=== PATIENT | male | born 1965 | race Caucasian/White ===

== ENCOUNTER 2025-03-27 16:42 | Observation (INO) | payer OTHER ==
[~2025-03-27] VITALS: Ht 175.3 cm; Wt 99.5 kg
[2025-03-27] MEDS ORDERED: SODIUM CHLORIDE 0.9% 500 ML IV ONE (17:00)
[2025-03-27 17:12] LABS: BASOPHILS 0.5 % (0.2-1.2); EOSINOPHILS 1.6 % (0.8-7.0); LYMPHOCYTES 17.1 % (21.8-53.1); MCH 30.9 PG (25.7-32.2); MCHC 34.9 g/dL (32.3-36.5); MCV 88.5 fL (79.0-92.2); MONOCYTES 6.7 % (5.3-12.2); NEUTROPHILS 73.8 % (34.0-67.9); RBC 5.37 M/uL (4.63-6.08)
[2025-03-27] MEDS ORDERED: MIDAZOLAM HCL 2 MG/2 ML VIAL IV ONE (17:15)
[2025-03-27 17:25] LABS: ALT (SGPT) 12.0 U/L (14-59); AST (SGOT) 16.0 U/L (15-37); GLOMERULAR FILTRATION RATE,EST 97.0 mL/min (>60); PROTEIN, TOTAL 7.9 g/dL (6.4-8.2); UREA NITROGEN 9.0 mg/dL (7-18)
[2025-03-27 17:40] LABS: BLOOD/HGB, URINE NEGATIVE (Negative); KETONE, URINE NEGATIVE (Negative); LEUK ESTERASE, URINE NEGATIVE (negative); NITRITE, URINE NEGATIVE (negative)
[2025-03-27 17:55] LABS: AMPHETAMINES, URINE NEGATIVE (NEGATIVE); BARBITURATES, URINE NEGATIVE (NEGATIVE); BENZODIAZEPINE, URINE NEGATIVE (NEGATIVE); CANNABINOID, URINE NEGATIVE (NEGATIVE); COCAINE, URINE NEGATIVE (NEGATIVE); ECSTASY, URINE NEGATIVE (NEGATIVE); FENTANYL, URINE NEGATIVE (NEGATIVE); METHADONE, URINE NEGATIVE (NEGATIVE); OPIATES, URINE NEGATIVE (NEGATIVE); OXYCODONE, URINE NEGATIVE (NEGATIVE); PHENCYCLIDINE, URINE NEGATIVE (NEGATIVE)
[2025-03-27] MEDS ORDERED: MECLIZINE HCL 25 MG TAB PO ONE (18:45)
[2025-03-27] MEDS ORDERED: ACETAMINOPHEN 325 MG TAB PO PRN (19:30)
[2025-03-27] MEDS ORDERED: PANTOPRAZOLE SODIUM 40 MG TABEC PO SCH (19:31)
[2025-03-27] MEDS ORDERED: AMLODIPINE BESYLATE 5 MG TAB PO SCH (19:32)
--- NOTE | 2025-03-27 21:00 | NUR ---
PATIENT ARRIVED TO UNIT VIA STRETCHER. REPORT RECEIVED FROM LUCIE TORO. ALL QUESTIONS ANSWERED. PATIENT REFUSES GOWN AT THIS TIME. PATIENT UP TO BATHROOM, SBA. GAIT UNSTEADY. PATIENT UNABLE TO VOID AT THIS TIME. PATIENT BACK TO BED. PATIENT ASSESSMENT COMPLETE. PATIENT STATES HE HAS INTERMITTENT DIZZINESS AND DOUBLE VISION. PATIENT PLACED ON CONTINUOUS HEART MONITOR. PATIENT DENIES PAIN OR NAUSEA. PATIENT UNRECEPTIVE TO EDUCATION, AND REFUSING SOME CARES AT THIS TIME. PATIENT DENIES NEEDS. ORIENTED TO ROOM AND CALL LIGHT. PATIENT STATES, "I DO NOT NEED YOUR HELP WITH ANYTHING. I CAN DO IT MYSELF". THIS RN AND LUCIE TOLBERT REMAIN IN ROOM TO COMPLETE ADMISSION.
[2025-03-27 21:11] VITALS: BP 188/101
--- NOTE | 2025-03-27 21:15 | NUR ---
PATIENT PROVIDED WITH SANDWICH BOX AND WATER. PATIENT STATES "I DO NOT DRINK WATER". ORANGE JUICE PROVIDED PER PATIENT REQUEST. PATIENT REFUSING PO PROTONIX, DESPITE EDUCATION PROVIDED. LIGHTS DIMMED, CALL LIGHT IN REACH. PATIENT VERBALIZES UNDERSTANDING TO NOTIFY RN OF NEEDS. BED ALARM ON.
[2025-03-27 21:27] VITALS: BP 190/108
--- NOTE | 2025-03-27 21:30 | NUR ---
PRN HYDRALAZINE ADMINISTERED FOR A BLOOD PRESSURE OF 190/108 MAP 133. THIS RN AND LUCIE TOLBERT REMAIN IN ROOM.
[2025-03-27 21:48] VITALS: BP 153/93
[2025-03-27 22:00] VITALS: BP 165/91
--- NOTE | 2025-03-27 22:05 | NUR ---
DR MACHADO CALLED AND PROVIDED UPDATE ON PATIENT. PARAMETERS RECEIVED FOR PRN HYDRALAZINE FOR A SYSTOLIC >160 AND DIASTOLIC >95. VERIFIED VIA REPEAT BACK METHOD.
[2025-03-27 22:41] VITALS: BP 151/84
--- NOTE | 2025-03-27 23:30 | NUR ---
ROUNDING ON PATIENT.
--- NOTE | 2025-03-27 23:37 | NUR ---
PATIENT SETS BED ALARM OFF, GETTING UP TO USE RESTROOM. THIS RN AND ROBIN RN IN ROOM TO ASSIST. PATIENT AMBULATES TO BATHROOM, VOIDS 400CC, AND BACK TO BED. PATIENT UNSTEADY ON FEET. PATIENT DENIES ANY FURTHER NEEDS AT THIS TIME. CALL LIGHT IN REACH, BED ALARM ON.
[2025-03-28] VITALS (10 sets, daily range): BP systolic 159–228; BP diastolic 87–136
--- NOTE | 2025-03-28 00:05 | NUR ---
PATIENT RESTING IN BED. RR 22. PATIENT UPDATED ON POC. PATIENT DENIES DIZZINESS, AND STATES "I HAVE NEVER BEEN DIZZY". PATIENT DENIES PAIN OR NAUSEA. PATIENT DENIES NEEDS AT THIS TIME. CALL LIGHT IN REACH, BED ALARM ON.
--- NOTE | 2025-03-28 01:30 | NUR ---
PATIENT UP TO BATHROOM. VOIDS 400ML OF URINE. PATIENT BACK TO BED. NO FURTHER NEEDS AT THIS TIME. CALL LIGHT IN REACH, BED ALARM ON.
--- NOTE | 2025-03-28 02:20 | NUR ---
BLOCK CHARTING 0220- PATIENT USES CALL LIGHT. LUCINA RN AND ROBIN FAULKNER IN ROOM. PATIENT SPEECH UNCOMPREHENSIBLE. PATIENT NOTED TO HAVE RIGHT SIDED DEFECITS AND LEFT SIDED FACIAL DROOP. 0228- CCU CHARGE NURSE AND STUMMEL SELECTOR AT BEDSIDE. CODE STROKE CALLED. 0235- PATIENT LEFT THE UNIT WITH LUCINA RN, ROBIN RN, AND GREGORIO CHANG, AND TAKEN TO CT. DR GARAY PRESENT AT CT. PATIENT UNABLE TO STAY STILL FOR CT SCAN. 10MG ETOMIDATE ADMINISTERED BY STUMMEL SELECTOR PER DR GARAY ORDER. 0300- PATIENT BACK ON UNIT. DR MACHADO AT BEDSIDE. 0321- EKG OBTAINED BY GREGORIO CHANG. 0325- DR MACHADO AND TELE STROKE ROBOT WITH NEUROLOGIST AT BEDSIDE. 0330- NEW ORDERS RECEIVED FOR 2MG ATIVAN, 2G MAGNESIUM, 40MEQ IV POTASSIUM, AND 4.5G KEPPRA. VERBAL ORDERS VERIFIED VIA REPEAT BACK METHOD. 0400- DR GARAY AT BEDSIDE. STUMMEL SELECTOR, RT, LUCINA RN, ROBIN RN, CCU CHARGE NURSE, AND DR MACHADO IN ROOM. NEW VERBAL ORDER FOR 2MG ATIVAN RECEIVED FROM DR MACHADO. ORDER VERIFIED VIA REPEAT BACK METHOD. 0417- 100MG OF ROCURONIUM AND 20MG ATOMIDATE ADMINISTERED BY MARLO STUMMEL SELECTOR PER DR GARAY ORDER. 0427- PATIENT INTUBATED. RT, DR MACHADO, DR GARAY, LUCINA RN, STUMMEL SELECTOR AND ROBIN FAULKNER, AND CCU CHARGE NURSE REMAIN AT BEDSIDE. 7.5 CM ETT 23 @ THE TEETH. 0445- RIGHT IJ TRIPLE LUMEN PLACED BY DR GARAY. 0501- CENTRAL LINE PLACEMENT VERIFIED AND OKAY TO USE PER DR GARAY 0502- PROPOFOL GTT STARTED AT 15 MCG/KG/MIN. FENTANYL GTT STARTED AT 25 MCG/HR END OF BLOCK CHARTING
[2025-03-28] MEDS ORDERED: ETOMIDATE 40 MG/20 ML VIAL IV ONE ×2 (02:40→04:15)
[2025-03-28] MEDS ORDERED: IBLOOD GLUCOSE TEST STRIP 1 EA TEST VI ONE (02:45)
[2025-03-28 03:16] LABS: BASOPHILS 0.7 % (0.2-1.2); EOSINOPHILS 2.3 % (0.8-7.0); LYMPHOCYTES 23.6 % (21.8-53.1); MCH 31.4 PG (25.7-32.2); MCHC 36.1 g/dL (32.3-36.5); MCV 87.0 fL (79.0-92.2); MONOCYTES 7.1 % (5.3-12.2); NEUTROPHILS 66.0 % (34.0-67.9); RBC 5.32 M/uL (4.63-6.08)
[2025-03-28 03:24] LABS: GLOMERULAR FILTRATION RATE,EST 97.0 mL/min (>60); UREA NITROGEN 5.0 mg/dL (7-18)
[2025-03-28] MEDS ORDERED: LORazepam 2 MG/ML VIAL ONE (03:30)
[2025-03-28] MEDS ORDERED: LORazepam 2 MG/ML VIAL IV ONE ×2 (03:45)
[2025-03-28] MEDS ORDERED: POTASSIUM CHLORIDE 10 MEQ/100 ML BAG IV SCH (03:45)
[2025-03-28] MEDS ORDERED: MAGNESIUM SULFATE 2 GM/50 ML BAG IV ONE (03:45)
[2025-03-28] MEDS ORDERED: ROCURONIUM BROMIDE 50 MG/5 ML SYR IV ONE (04:15)
[2025-03-28] MEDS ORDERED: FENTANYL CITRATE-0.9 % NACL/PF 100 ML IV ONE (04:19)
[2025-03-28] MEDS ORDERED: FENTANYL CITRATE-0.9 % NACL/PF 100 ML IV SCH (04:30)
[2025-03-28 04:53] LABS: BASE EXCESS, BLOOD GAS 2.0 mmol/L (-2-2); HCO3, BLOOD GAS 25.8 mmol/L (22-26); O2 SATURATION, BLOOD GAS 95.6 % (95.0-100.0); OXYGEN RECEIVED, BLOOD GAS 26%; PCO2, BLOOD GAS 37.1 mmHg (35-45); PH, BLOOD GAS 7.45 (7.35-7.45); PO2, BLOOD GAS 79 mmHg (80-100); TOTAL CO2, BLOOD GAS 26.9
--- NOTE | 2025-03-28 05:55 | NUR ---
RESTRAINTS ORDERED BUT NOT NEEDED, RESTRAINTS NOT APPLIED.
--- NOTE | 2025-03-28 06:00 | NUR ---
LIFE FLIGHT CREW ARRIVED TO UNIT. FORREST CATHETOR PLACED BY ROBIN FAULKNER, STERILE TECHNIQUE UTILIZED. FORREST CATHETOR STABILIZED WITH STATLOCK. NEW DRESSING APPLIED TO RIGHT SHOULDER MASS, SITE NOTED TO BE LEAKING BROWN DRAINAGE. REPORT GIVEN TO LIFE FLIGHT CREW, ALL QUESTIONS ANSWERED.
[2025-03-28] MEDS ORDERED: POTASSIUM CHLORIDE 10 MEQ/100 ML BAG IV ONE (07:00)
--- NOTE | 2025-03-28 07:08 | NUR ---
PATIENT LEFT THE UNIT WITH LIFE FLIGHT CREW. PATIENT BELONGINGS TAKEN WITH PATIENT.
--- NOTE | 2025-03-28 07:50 | NUR ---
report called to Jaky FAULKNER at [facility]. all questions answered.
[2025-03-28] MEDS ORDERED: LIDOCAINE 2% VISCOUS 6 ML SYR TOP ONE (09:30)
[2025-03-28] MEDS ORDERED: PHARMACY RENAL DOSE ADJUSTMENT 1 DOSE MISC PO SCH (12:00)
--- NOTE | 2025-03-28 14:44 | EKG ---
[facility] [address] [facility] [place], [place] [address] Signed Sinus tachycardia Moderate voltage criteria for LVH, may be normal variant Borderline ECG When compared with ECG of 27-MAR-2025 18:52, (Unconfirmed) No significant change was found Confirmed by AUREA MACHADO MD ([id number]) on 03/28/2025 2:44:41 PM Electronically Signed By: AUREA MACHADO 03/28/25 1444 PATIENT NAME: REYNALDO CRUZ CHAPO Electrocardiogram DATE OF : 65 PHYSICIAN: AUREA MACHADO REPORT #: [id number] REPORT IS CONFIDENTIAL AND NOT TO BE RELEASED WITHOUT AUTHORIZATION
--- NOTE | 2025-03-28 14:45 | EKG ---
[facility] [address] [facility] [facility] [place] [address] Signed Normal sinus rhythm Moderate voltage criteria for LVH, may be normal variant ( R in aVL , [place] product ) Borderline ECG No previous ECGs available Confirmed by AUREA MACHADO MD ([id number]) on 03/28/2025 2:45:05 PM Electronically Signed By: AUREA MACHADO 03/28/25 1445 PATIENT NAME: REYNALDO CRUZ Electrocardiogram DATE OF : 65 PHYSICIAN: AUREA MACHADO REPORT #: [id number] REPORT IS CONFIDENTIAL AND NOT TO BE RELEASED WITHOUT AUTHORIZATION
== END 2025-03-28 07:15 | disposition short-term general hospital (02) ==
LOC: ED 16:42 → CCU 16:44
PROVIDERS: Emergency Medicine; ADMIT Internal Medicine; ATTEND Internal Medicine
PROC: 05HM33Z Insertion of Infusion Device into Right Internal Jugular Vein, Percutaneous Approach (ICD-10-PCS; principal; 2025-03-28)
DX: I16.0 Hypertensive urgency (principal); I63.522 Cerebral infarction due to unspecified occlusion or stenosis of left anterior cerebral artery; I63.542 Cerebral infarction due to unspecified occlusion or stenosis of left cerebellar artery; G81.91 Hemiplegia, unspecified affecting right dominant side; I10 Essential (primary) hypertension; E11.9 Type 2 diabetes mellitus without complications
CPT/HCPCS: 31500; 36415; 36592; 36600; 70450; 70496; 70498; 71045; 80048; 80053; 80307; 81003; 82803; 83735; 85025; 93005; 93010; 94003; 96360; 96361; 96365; 96375; 96376; 99285-25; A9270; G0378; G0480; J0360; J1953; J2060; J2704; J3010; J3475; J3480; J3490; J7040; Q9967